=== PATIENT | male | born 1985 | race Caucasian/White ===

== ENCOUNTER 2022-09-16 12:47 | Emergency (ER) | payer OTHER, SELFPAY ==
[2022-09-16 13:23] VITALS: BP 162/100; PULSE 97; RESP 18; TEMP 36.2; O2SAT 97; BMI 31.9
--- NOTE | 2022-09-16 14:00 | ED.GENADULT ---
HPI - General Adult General Time Seen by Provider: 14:01 Date Seen: 09/16/22 Chief complaint: Back Injury/Pain Stated complaint: Back/neck pain Time Seen by Provider: 09/16/22 13:54 Source: patient and RN notes reviewed Mode of arrival: ambulatory Limitations: no limitations History of Present Illness HPI narrative: Patient is a 36-year-old male coming in with low back pain. About 5 weeks ago he reports that he was reaching overhead for quite a long time at work, felt his back start giving him problems. He eventually had pain going into the right thigh above the knee. He states he went to the doctor, was given prednisone and a muscle relaxant. Pain started improving. He then started noting that the pain went over into the left side of the back and was going into the left thigh, never below the knee. He went to an urgent care in [place] and was given another 5 day course of steroids. The pain did improve in the fact that it quit going down the leg. He has pain now across the low back but it is not really going into either leg. He states he has had some history of back issues. He is going to try to work on getting an MRI when he gets back home to [place]. He is here visiting right now. He denies any bowel or bladder issues with this. There was no trauma to his back. He has done Tylenol in [id number]. He states he did do about 4 sessions of physical therapy and actually thought it made his back worse. No numbness or tingling, no motor component at this time. Related Data Previous Rx's Medication Instructions Recorded cyclobenzaprine 10 mg tablet 10 mg PO TID PRN muscle spasm #21 09/16/22 tabs prednisone 20 mg tablet 20 mg PO UD DOSE PK #20 tabs 09/16/22 Allergies Allergy/AdvReac Type Severity Reaction Status Date / Time No Known Drug Allergies Allergy Verified 09/16/22 13:28 Review of Systems Status of ROS: Reports: 6 or more systems reviewed and unremarkable except as noted in History and below PFSH PFSH Social History Smoking Status: Current every day smoker What tobacco products do you use: cigarettes Smoking packs per day: 1.5 Smoking cigarettes per day: 30.0 Years smoked: 20 Smoking pack-years: 30.00 Do you use any of these nicotine containing products: None Second hand tobacco smoke exposure: Yes How often do you have a drink containing alcohol: never How often do you have six or more drinks on one occasion: Never AUDIT-C Alcohol total score: 0 Non-prescribed substance use: denies use service: No Exam Const: Vital Signs, click to edit/add: Vital Signs - 24 hr 09/16/22 13:23 Temperature 97.1 F L Pulse Rate [Right Pulse Oximeter] 97 Respiratory Rate 18 Blood Pressure [Ri ght Upper Arm] 162/100 H Pulse Oximetry 97 Oxygen Delivery Me thod Room Air Patient is a very pleasant 36-year-old gentleman sitting in a rocking chair when I come into stab 2 to see him. He is alert interactive, no apparent distress. He gets up slowly, can ambulate once he gets up and his gait is normal. He is slow to sit back down on the ED bed. He has no midline tenderness over his back, no palpable paraspinous tenderness. No visible abnormalities on inspection. He has a positive straight leg raise on the left side but without radiculopathy, causes increased low back pain for him. Right leg is negative. I cannot get DTRs on either side. Strength is 5 5 and symmetric throughout. Normal sensation. Documenting provider has reviewed patient's vital signs: yes Course Course Hospital Course: Have reviewed with the patient that he certainly will do a prolonged steroid course for him. However, after this steroid course, would not recommend him being on steroids orally for while. We did discuss risks benefits and side effects of steroids. Do think is going to need follow-up and would recommend consideration of an MRI if he has continuing symptoms. I do not find any need for emergent MRI today however. Vital Signs Vital signs: Initial Vital Signs Temperature 97.1 F L 09/16/22 13:23 Temperature Source Temporal Artery Scan 09/16/22 13:23 Pulse Rate 97 09/16/22 13:23 Respiratory Rate 18 09/16/22 13:23 Blood Pressure 162/100 H 09/16/22 13:23 Blood Pressure Mean 120 09/16/22 13:23 Blood Pressure Position Sitting 09/16/22 13:23 Pulse Oximetry 97 09/16/22 13:23 Oxygen Delivery Method 09/16/22 13:23 Vital Signs Temperature 97.1 F L 09/16/22 13:23 Pulse Rate 97 09/16/22 13:23 Respiratory Rate 18 09/16/22 13:23 Blood Pressure 162/100 H 09/16/22 13:23 Pulse Oximetry 97 09/16/22 13:23 Oxygen Delivery Method 09/16/22 13:23 Temperature 97.1 F L 09/16/22 13:23 Pulse Rate 97 09/16/22 13:23 Respiratory Rate 18 09/16/22 13:23 Blood Pressure 162/100 H 09/16/22 13:23 Pulse Oximetry 97 09/16/22 13:23 Oxygen Delivery Method 09/16/22 13:23 Discharge Plan Discharge Clinical Impression: Strain of lumbar region Patient Disposition: Home, Self-Care Condition: Stable Instructions: Low Back Strain (ED), Lumbar Radiculopathy (ED) Additional Instructions: Take prednisone as prescribed. Recommend Tylenol 1000 mg 3 times a day baseline for pain. Can supplement with ibuprofen per bottle directions as needed for extra pain management. Prescription for Flexeril provided, follow-up prescription. Note Flexeril can be sedating. Do need to follow-up with a primary care provider when you get home, discuss possibility of having an MRI done if felt appropriate at the time. If you develop any bowel or bladder dysfunction, have increased seen pain going down into the legs again, any motor weakness, do need to be re-evaluated. Activity Level: Activity as Tolerated Prescriptions: New prednisone 20 mg tablet 20 mg PO UD DOSE PK Qty: 20 0RF Rx Instructions: 60mg daily for 3 days, then 40mg daily for 3 days, then 20mg daily for 3 days, then 10mg daily for 4 days cyclobenzaprine 10 mg tablet 10 mg PO TID PRN (Reason: muscle spasm) Qty: 21 0RF Stand Alone Forms: MyHealth Info Instructions
--- OUTSIDE RECORDS SUMMARY | 2022-09-16 14:28 | XMS_ITS | Encounter Summary ---
:1985 Author Care Team Providers Name Role Phone Coy Guitar Teacher [phone] Reason for Visit back pain-acute Assessment and Plan 1. Sciatica Continue light activities and light str etching. Take muscle relaxants, and anti-inflamma tories as prescribed. Muscle relaxants can cause sedation. Return if condition worsens significantl y. ? cyclobenzaprine 10 mg tablet ? prednisone 20 mg tablet Discussion Note: None recorded.Patient educational handouts: No information available. Plan of Care Reminders Provider Appointments None recorded. ? ? Lab None recorded. ? ? Referral None recorded. ? ? Procedures None recorded. ? ? Surgeries None recorded. ? ? Imaging None recorded. ? ? Medications Name Start Date ? ? cyclobenzaprine 10 mg tablet ? Take 1 tablet 3 times a day by oral route as needed. prednisone 20 mg tablet ? Take 2 tablets every day by oral route for 5 days. Medications Administered None recorded. Vitals Height Weight BMI Blood Pressure 6 ft 8 in 295 lbs 16 oz 32.5 kg/m2 150/100 mm[Hg] Results Lab Results None recorded. Allergies Code Code System Name Reaction Severity Onset NKDA ? ? ? Problems Name Status Onset Date Source ? Eruption Active 02/17/2022 ? Procedures None recorded. Vaccine List Vaccine Type COVID-19, mRNA, LNP-S, PF, 30 mcg/0.3 mL dose ([employer]) 06/08/2021 06/29/2021 DTaP 04/16/1991 DTP 02/20/1986 04/03/1986 04/25/1987 08/23/1988 04/02/1991 Hep B, unspecified formulation 08/26/1997 09/30/1997 03/27/1998 Hib (HbOC) 04/25/1987 Hib, unspecified formulation 01/12/1988 MMR 04/25/1987 04/02/1991 04/16/1991 OPV 02/20/1986 04/03/1986 04/25/1987 08/23/1988 04/02/1991 polio, unspecified formulation 04/16/1991 Td (adult), adsorbed 04/14/1997 Tdap 06/21/2013 Social History Tobacco Smoking Status Heavy Tobacco Smoker (2 Notes: 2 pa cks per day packs per day) Has tobacco cessation counseling N been provided? In the past 10 days, have you N been told you may have COVID-19 or have been tested for COVID-19? Have you had any of these N symptoms: Chills ,Headache, Fatigue, Muscle or body aches , Sore throat, New loss of taste or smell, Nausea or vomiting, or Diarrhea? What is your current pack years? 30ormorepackyears What was the date of your most 09/02/2022 recent tobacco screening? Do you or have you ever used any N other forms of tobacco or nicotine? Have you had a COVID-19 vaccine No in the last 7 days? Have you had a fever and/or N symptoms of a lower respiratory illness (cough, difficulty breathing, etc)? At what age did you start 16 smoking tobacco? How many years have you smoked 20 tobacco? Functional Status Unknown. Past Encounters 07/27/2022 Sciatica Nilay Nguyen, DO: [address] [place] [address], Ph. [phone] History of Present Illness Note: <div>Patient works at [employer]. Last Tuesday patient was up in a scissors lift, painting a steel structure. He was leaning on the back of the basket lift, raising his arm to pain something up and behind him (the only position he could get the area). After he was done painting felt right lower back pain. The pain has persists and today the pain is shooting down right thigh.</div> Review of Systems None recorded. Physical Exam ? Notes: <div>General: Patient is shazia rt and oriented. Gait is antalgic.
Examination of the back reveals no rigo laron muscle tenderness. There is no midline tenderness. Gluteal area non -tender. Straight-leg test is positive on the right. Strength and reflexes are symmetric in lower extremities.</div>
--- OUTSIDE RECORDS SUMMARY | 2022-09-16 14:28 | XMS_ITS | Encounter Summary ---
:1985 Author Care Team Providers Name Role Phone Coy Caser [phone] Reason for Visit back pain-acute Patient presents complaining of lower le ft back pain upon waking 08/29/22. He has pain in his lower left buttock pain and his hips have bene locking up and he has a hard time working. Denies bladder or bowel incontinence. He has had similar p ain about a month ago on the right side from a work injury, but that was not as bad and has resolved with muscle relaxer and steroids. Assessment and Plan 1. Left side sciatica Patient well-appearing, vital signs sta ble. Discussed moist heat, ice, Tylenol as needed. Avoid ibuprofen or NSAIDs with p rednisone. Do not drive with the cyclobenzaprine. ? prednisone 20 mg tablet ? cyclobenzaprine 10 mg tablet Discussion Note: None recorded.Patient educational [...] BMI Blood Pressure 6 ft 8 in 304 lbs 16 oz 33.5 kg/m2 139/96 mm[Hg] Results Lab Results None recorded. Allergies Code Code System Name Reaction Severity Onset NKDA ? ? ? Problems Name Status Onset Date Source ? Eruption Active 02/17/2022 ? Procedures None recorded. Vaccine List Vaccine Type COVID-19, mRNA, LNP-S, PF, 30 mcg/0.3 mL dose ([employer]) 06/08/2021 06/29/2021 DTaP 04/16/1991 DTP 02/20/1986 04/03/1986 [...] 20 tobacco? Functional Status Unknown. Past Encounters 09/02/2022 Left Side Sciatica Kendra Urrutia, MSN OPERATING THEATRE TECHNICIAN-C: [address] [place] [address], Ph. [phone] History of Present Illness Note: <div>Patient is a 36-year-old male presents to clinic with complaints of left sided sciatic pain. He reports low back pain that shoots down into his left buttocks and goes down to left knee. He denies any injury. He has history of sciatica but typically on the right. He denies numbness or tingling. Denies any loss of bowel or bladder. Denies any fever, chills, body aches. No dysuria.</div>Review of Systems: ROS as noted in the HPI Review of Systems None recorded. Physical Exam ? Notes: <div>GENERAL: Mild distress, alert. Patient moves stiffly and gets up from sitting by climbing up on th ighs. Some difficulty lying back on exam table.
BACK: There is no midline point tenderness on exam. Spine is overall straight without noted spasm . No edema or erythema noted. Paraspinal musculature is nontender. No SI joint tenderness noted on exam. Palpation of sciatic notch area does not elicit tenderness. Normal rotation and lateral bending.
Straight leg ra ise is negative bilaterally. Hip ROM seems normal, despite mild guarding during exam.
EXTREMITIES: No significant lower extremity edema noted. Perip heral pulses are 2/2 bilaterally and symmetric.
NEURO: Lower e xtremity reflexes are normal and symmetric. Distal strength and sensory testing are grossly normal. Gait is grossly normal.
</div>
--- OUTSIDE RECORDS SUMMARY | 2022-09-16 14:28 | XMS_ITS ---
:1985 Author Care Team Providers Name Role Phone ESTRELLITA First Assistant [phone] Allergies Code Code System Name Reaction Severity Status Onset No Known Allergies ? ? Deactivated ? NKDA ? Medications Name Status Start Date Stop Date ? ? Benadryl Completed ? 02/05/2022 cyclobenzaprine 10 mg tablet Active ? Not available Take 1 tablet 3 times a day by oral route as needed. omeprazole 20 mg capsule,delayed release Completed 016 04/15/2021 prednisone 20 mg tablet Active ? Not avai lable Take 2 tablets every day by oral route for 5 days. triamcinolone acetonide 0.1 % topical cream Completed ? 07/27/2022 APPLY THIN LAYER TOPICALLY TO THE AFFECTED AREA TWICE DAILY Problems Name Status Onset Date Source ? Eruption Active 02/17/2022 ? Procedures None recorded. Results Lab Results Date Name Specimen Result Interpretation Description Value Range Status Address ? 09/24/2016 Influenza A&B ? Influenza a negative negat erlin Final [place] PCR PCR [facility] ([address]): [place] ? ? ? 2009 H1N1 Pcr not negative Final [place] detected [facility] ([id number]): [place] ? ? ? Influenza B negative negative Final [place] PCR [facility] ([id number]): [place] 01/02/2015 Historical ? Results ? ? Final [place] Micro Report [facility] ([id number]): [place] 05/14/2009 D-dimer,blood ABNORMAL D-dimer/quant 2.66 mg/L 0.43-1.87 Final [place] itative mg/L [facility] ([id number]): [place] 05/14/2009 Cardiac ? Cardiac 0.01 0.00-0.04 Final [place] Troponin Troponin I NG/mL NG/mL [facility] ([id number]): [place] 05/14/2009 Creatinine ? Creatinine / 0.63 0.61-1.24 Final [place] Use Cre mg/dL mg/dL [facility] Instead [facility] (23890): [place] ? ? ? GFR > 60 > 60 Final [place] Calculated [facility] (40055): [place] 05/14/2009 Eryth. ? Eryth. 0 mm/HR 0-15 Final Asce nsion Sedimentation Sedimentation mm/HR [facility] Rate Rate [facility] ([id number]): [place] 05/14/2009 Complete Blood ? White Blood 6.4 x1000 3.9 -11.0 Final [place] Count/auto Count x1000 [facility] Dif5 [facility] (48254): [place] ? ? ? Red Blood 4.70 4.35-5.49 Final Asc ension Cells million million [facility] (53825): [place] ? ? ? Hemoglobin 15.3 g/dL 13.3-17.7 Final [place] g/dL [facility] (66458): [place] ? ? ? Hematocrit 44.6 % 39.8-52.2 Final As cension % [facility] (00164): [place] ? ? ? Mean 94.9 fL 80-100 fL Final Ascens ion Corpuscular [facility] Volume [facility] (22037): [place] ? ? ? Mean 32.5 pg 26.6-33.8 Final [facility] Corpuscular pg [facility]- [facility] HGB [facility] (83659): [place] ? ? ? Mean Bharat HGB 34.3 g/dL 32-36 Final [place] Conc g/dL [facility] (30463): [place] ? ? ABNORMAL Red Cell 10.7 % 11.5-14.5 Final As cension Distrib Width % [facility] (18621): [place] ? ? ? Platelet 242 x1000 160-475 Final Asc ension Count x1000 [facility] (24395): [place] ? ? ABNORMAL Mean Platelet 7.0 fL 7.4-10.4 Final [place] Volume fL [facility] (35613): [place] ? ? ? % 59.9 % 50.0-80.0 Final Ascensi on Neutrophils, % [facility] Automated Backfil l ([id number]): [place] ? ? ? % Lymphocytes 27.9 % 25.0-45.0 Final [place] (Auto) % [facility] (79343): [place] ? ? ? % Monocyte 10.4 % 2.0-13.0 Final Asc ension (Auto) % [facility] (04660): [place] ? ? ? % Eosinophil 1.1 % 1.0-5.0 % Final [place] (Auto) [facility] (89057): [place] ? ? ? % Basophil 0.7 % 0-1.0 % Final Asce nsion (Auto) [facility] (57267): [place] ? ? ? Absolute 3.8 x1000 1.8-7.7 Final Asc ension Neutrophil x1000 [facility] Count Back[facility] (08920): [place] ? ? ? Absolute 1.8 x1000 1.0-4.8 Final Asc ension Lymphocyte x1000 [facility] Count Back[facility] (19600): [place] ? ? ? Absolute 0.7 x1000 0-0.8 Final Asce nsion Monocytes x1000 [facility] Count [facility] (52488): [place] ? ? ? Absolute 0.1 x1000 0-0.45 Final Asce nsion Eosinophil x1000 [facility] Count Back[facility] (57366): [place] ? ? ? Absolute 0.0 x1000 0-0.2 Final Asce nsion Basophil Count x1000 [facility] ([id number]): [place] Past Encounters 09/02/2022 Left Side Sciatica Kendra Urrutia, MSN FORGING PRESS SETTER UP-C: [address] [place] [address], Ph. [phone] 07/27/2022 Sciatica Nilay Nguyen, DO: [address] [place] [address], Ph. [phone] 02/17/2022 WILLA Lewis: [address] [place] [address], Ph. 02/05/2022 Generalized Rash SHIVANI Villagomez FORGING PRESS SETTER UP-C: [address] [place] [address], Ph. [phone] 01/20/2022 Atopic Dermatitis WILLA Forrest: [address] [place] [address], Ph. [phone] 04/15/2021 Low Back Strain Slick Chester MD: [address] [place] [address], Ph. Social History Tobacco Smoking Status Heavy Tobacco Smoker (2 packs per No amy: 2 packs per day day) Vaccine List Vaccine Type COVID-19, mRNA, LNP-S, PF, 30 mcg/0.3 mL dose ([employer]) 06/08/2021 06/29/2021 DTaP 04/16/1991 DTP 02/20/1986 04/03/1986 04/25/1987 08/23/1988 04/02/1991 Hep B, unspecified formulation 08/26/1997 09/30/1997 03/27/1998 Hib (HbOC) 04/25/1987 Hib, unspecified formulation 01/12/1988 MMR 04/25/1987 04/02/1991 04/16/1991 OPV 02/20/1986 04/03/1986 04/25/1987 08/23/1988 04/02/1991 polio, unspecified formulation 04/16/1991 Td (adult), adsorbed 04/14/1997 Tdap 06/21/2013 Plan of Care Patient Instructions While engaging in outdoor activity, ple ase apply sunscreen use SPF# 30 or higher, broad spectrum, reapplied every 2-3 hour s. We recommended use of hats, sunglasses, and sun protective clothing and an oral Vitamin D supplement. Please conduct a monthly self-skin exam and to contact r office with any concerns in regards to changing moles, symptomatic lesions, kahlil wth or other problems. Patient was educated on the need for sunscreen use SPF# 30 or higher, broad spectrum, reapplied every couple of hours. Recommended use of hats , sunglasses, and sun protective clothing and an oral Vitamin D supplement recommended . Reviewed and recommended a monthly self-skin exam and to contact our office with any concerns in regards to changing moles, symptomatic lesions, growth or ot her problems. Reminders Provider Appointments None recorded. ? ? Lab None recorded. ? ? Referral None recorded. ? ? Procedures None recorded. ? ? Surgeries None recorded. ? ? Imaging None recorded. ? ? Vitals 09/02/2022 11:25AM Walk In 5 Height Weight BMI Blood Pressure 80 in 304 lbs 16 oz 33.5 kg/m2 139/96 mm[Hg] 07/27/2022 12:15PM Walk In 5 Height Weight BMI Blood Pressure 80 in 295 lbs 16 oz 32.5 kg/m2 150/100 mm[Hg] 02/05/2022 11:40AM Walk In 5 Height Weight BMI Blood Pressure 80 in 287 lbs 16 oz 31.6 kg/m2 126/79 mm[Hg] 01/20/2022 02:20PM Walk In 5 Height Weight BMI Blood Pressure 80 in 295 lbs 32.4 kg/m2 132/82 mm[Hg] 04/15/2021 12:20PM Walk In 5 Height Weight BMI Blood Pressure 80 in 279 lbs 16 oz 30.8 kg/m2 138/90 mm[Hg] 09/24/2016 BMI 28.67 kg/m2 09/24/2016 Height Weight Blood Pressure 80 in 261 lbs 117/58 mm[Hg] 01/02/2015 Blood Pressure 130/96 mm[Hg] 12/11/2014 Blood Pressure 148/86 mm[Hg] 06/28/2013 Height Weight Blood Pressure 79 in 240 lbs 132/76 mm[Hg]
== END 2022-09-16 14:34 | disposition home or self-care (01) ==
LOC: ED 14:22
PROVIDERS: Emergency Provider Family Medicine
DX: S39.012A Strain of muscle, fascia and tendon of lower back, initial encounter (principal)
CPT/HCPCS: 99283; 99284